=== PATIENT | female | born 1985 | race Caucasian/White ===

== ENCOUNTER 2017-01-13 09:17 | Emergency (ER) | payer OTHER, MEDICAID ==
[~2017-01-13 09:17] MED LIST: ALLEGRA180 MG PO; ANAPROX DS550 MG PO; AVIDOXY100 MG PO; BACTRIM DS 8001 TA1 PO; BENADRYL50 MG PO; CLARITIN10 MG PO; CLINDAMYCIN HC300 MG PO; DIPROSONE0.05% TP; DOXYCYCLINE MO100 MG PO; LIDEX0.05% T; MEDROL DOSEPAK4 MG PO; MOTRIN600 MG PO; MOTRIN800 MG PO; MULTIPLE VITAMI1 CAP PO; NAPROSYN500 MG PO; PHENERGAN W/DM120 ML PO; PREDNICOT20 MG PO; PRENATAL 1 MG +1 TAB PO; PROCTOFOAM 1%10 GM R; PROVENTIL0.09 MG/AC IH; ROBITUSSIN AC 110 ML PO; SEPTRA DS 800 M1 TAB PO; TRIMOX500 MG PO; TYLENOL W/CODEI1 TA2 PO; VIBRAMYCIN100 MG PO; VICODIN 5/500 505 MG PO; ZITHROMAX Z PA250 MG PO
[2017-01-13] MEDS ORDERED: CYCLOBENZAPRINE10 MG PO (11:15)
[2017-01-13] MEDS ORDERED: Motrin,Rufen800 MG PO (11:15)
== END 2017-01-13 13:05 | disposition home or self-care (01) ==
LOC: ED 09:17
DX: S16.1XXA Strain of muscle, fascia and tendon at neck level, initial encounter (principal); Z88.1 Allergy status to other antibiotic agents; Z79.899 Other long term (current) drug therapy; V43.62XA Car passenger injured in collision with other type car in traffic accident, initial encounter; Y93.89 Activity, other specified; Y92.89 Other specified places as the place of occurrence of the external cause; Y99.8 Other external cause status

== ENCOUNTER 2017-01-16 11:24 | Emergency (ER) | payer OTHER, MEDICAID ==
[~2017-01-16] VITALS: Ht 170.1 cm; Wt 90.7 kg
[~2017-01-16 11:24] MED LIST changes: +CYCLOBENZAPRINE10 MG PO; +Motrin,Rufen800 MG PO
[2017-01-16] MEDS ORDERED: NORCO 5-325 TA1 EACH PO (12:24)
[2017-01-16] MEDS ORDERED: MEDROL DOSEPAK4 MG PO (12:24)
== END 2017-01-16 13:59 | disposition home or self-care (01) ==
LOC: ED 11:24
DX: M54.12 Radiculopathy, cervical region (principal); F17.200 Nicotine dependence, unspecified, uncomplicated; Z88.1 Allergy status to other antibiotic agents; Z79.899 Other long term (current) drug therapy

== ENCOUNTER 2017-02-13 11:12 | Emergency (ER) | payer MEDICAID ==
[~2017-02-13] VITALS: Ht 167.6 cm; Wt 94.3 kg
[~2017-02-13 11:12] MED LIST changes: +NORCO 5-325 TA1 EACH PO
[2017-02-13] MEDS ORDERED: ZYRTEC10 MG PO (11:50)
[2017-02-13] MEDS ORDERED: AMOXICILLIN500 M2 PO (11:50)
== END 2017-02-13 12:11 | disposition home or self-care (01) ==
LOC: ED 11:12
DX: J01.90 Acute sinusitis, unspecified (principal); F17.200 Nicotine dependence, unspecified, uncomplicated; Z88.1 Allergy status to other antibiotic agents; Z79.899 Other long term (current) drug therapy

== ENCOUNTER 2017-07-27 01:27 | Emergency (ER) | payer MEDICAID ==
[~2017-07-27] VITALS: Ht 317.5 cm; Wt 99.8 kg
[~2017-07-27 01:27] MED LIST changes: +AMOXICILLIN500 M2 PO; +ZYRTEC10 MG PO
[2017-07-27 02:46] LABS: BILIRUBIN NEGATIVE (NEGATIVE); BLOOD NEGATIVE (NEGATIVE); CLARITY CLEAR (CLEAR); COLOR YELLOW (YELLOW); GLUCOSE NEGATIVE (NEGATIVE); KETONE NEGATIVE (NEGATIVE); LEUKO ESTERASE NEGATIVE (NEGATIVE); NITRITE NEGATIVE (NEGATIVE); UROBILINOGEN 0.2 E.U./dl (0.2-1.0)
[2017-07-27 02:55] LABS: URINE AMPHETAMINES < 1000 (1000ng/ml); URINE BARBITURATES < 200 (200ng/ml); URINE BENZODIAZEPINES < 200 (200ng/ml); URINE CANNABINOIDS (THC) < 50 (50ng/ml); URINE COCAINE < 300 (300ng/ml); URINE METHADONE < 300 (300ng/ml); URINE OPIATES < 300 (300ng/ml)
[2017-07-27 02:56] LABS: BACTERIA TRACE; RBC 0-2 rbc/hpf (0-2); WBC 0-2 wbc/hpf (0-5)
[2017-07-27 03:01] LABS: URINE PHENCYCLIDINE < 25 (25ng/ml)
== END 2017-07-27 04:19 | disposition home or self-care (01) ==
LOC: ED 01:27
PROVIDERS: Emergency Medicine
DX: T45.0X5A Adverse effect of antiallergic and antiemetic drugs, initial encounter (principal); F17.200 Nicotine dependence, unspecified, uncomplicated; Z88.1 Allergy status to other antibiotic agents; Z79.899 Other long term (current) drug therapy; Y92.89 Other specified places as the place of occurrence of the external cause

== ENCOUNTER 2017-10-06 14:35 | Emergency (ER) | payer MEDICAID ==
[~2017-10-06] VITALS: Ht 167.6 cm; Wt 95.3 kg
[2017-10-06] MEDS ORDERED: MEDROL DOSEPAK4 MG PO (14:56)
[2017-10-06] MEDS ORDERED: AMOXICILLIN500 M2 PO (14:56)
[2017-10-06] MEDS ORDERED: ZYRTEC10 MG PO (14:56)
== END 2017-10-06 15:08 | disposition home or self-care (01) ==
LOC: ED 14:35
DX: J40 Bronchitis, not specified as acute or chronic (principal); J01.00 Acute maxillary sinusitis, unspecified; Z79.899 Other long term (current) drug therapy; Z88.1 Allergy status to other antibiotic agents

== ENCOUNTER 2018-04-03 17:04 | Emergency (ER) | payer MEDICAID ==
[~2018-04-03] VITALS: Ht 167.6 cm; Wt 86.2 kg
[2018-04-03] MEDS ORDERED: Motrin,Rufen800 MG PO (18:36)
== END 2018-04-03 19:05 | disposition home or self-care (01) ==
LOC: ED 17:04
DX: M77.9 Enthesopathy, unspecified (principal); M25.571 Pain in right ankle and joints of right foot; Z88.1 Allergy status to other antibiotic agents; Z79.899 Other long term (current) drug therapy

== ENCOUNTER 2018-04-10 21:25 | Emergency (ER) | payer MEDICAID ==
[~2018-04-10] VITALS: Ht 170.1 cm; Wt 90.3 kg
[2018-04-10] MEDS ORDERED: Motrin,Rufen800 MG PO (22:25)
== END 2018-04-10 22:27 | disposition home or self-care (01) ==
LOC: ED 21:25
DX: S39.012A Strain of muscle, fascia and tendon of lower back, initial encounter (principal); Z88.1 Allergy status to other antibiotic agents; Z79.899 Other long term (current) drug therapy; W01.0XXA Fall on same level from slipping, tripping and stumbling without subsequent striking against object, initial encounter; Y93.89 Activity, other specified; Y92.89 Other specified places as the place of occurrence of the external cause; Y99.8 Other external cause status

== ENCOUNTER 2018-10-25 22:24 | Emergency (ER) | payer MEDICAID ==
[~2018-10-25] VITALS: Ht 170.1 cm; Wt 76.2 kg
[2018-10-25] MEDS ORDERED: VIBRAMYCIN100 MG PO (23:10)
== END 2018-10-25 23:28 | disposition home or self-care (01) ==
LOC: ED 22:24
DX: N89.8 Other specified noninflammatory disorders of vagina (principal); Z11.3 Encounter for screening for infections with a predominantly sexual mode of transmission; Z88.1 Allergy status to other antibiotic agents; Z79.899 Other long term (current) drug therapy

== ENCOUNTER 2022-02-10 04:16 | Emergency (ER) | payer SELFPAY | END 2022-02-10 04:55 | disposition home or self-care (01) | LOC: ED 04:16 | DX: H10.32 Unspecified acute conjunctivitis, left eye (principal); Z79.899 Other long term (current) drug therapy; Z88.1 Allergy status to other antibiotic agents ==

== ENCOUNTER 2022-12-06 19:03 | Emergency (ER) | payer MEDICAID | END 2022-12-06 22:57 | disposition home or self-care (01) | LOC: ED 19:03 | DX: J06.9 Acute upper respiratory infection, unspecified (principal); R51.9 Headache, unspecified; Z20.822 Contact with and (suspected) exposure to COVID-19; Z88.1 Allergy status to other antibiotic agents; Z98.890 Other specified postprocedural states ==

== ENCOUNTER 2023-01-29 14:02 | Emergency (ER) | payer MEDICAID ==
[~2023-01-29] VITALS: Ht 167.6 cm; Wt 95.3 kg
[2023-01-29] MEDS ORDERED: AMOXICILLIN875 MG PO (15:47)
== END 2023-01-29 16:08 | disposition home or self-care (01) ==
LOC: ED 14:02
DX: J32.9 Chronic sinusitis, unspecified (principal); Z98.51 Tubal ligation status

== ENCOUNTER 2023-10-27 21:14 | Emergency (ER) | payer MEDICAID ==
[~2023-10-27] VITALS: Ht 167.6 cm; Wt 95.3 kg
[~2023-10-27 21:14] MED LIST changes: +AMOXICILLIN875 MG PO
[2023-10-27 21:40] LABS: BASO % 0.3 % (0.0-1.0); EOS # 0.1 10*3/uL (0.0-0.4); EOS % 1.5 % (1.0-4.0); HEMATOCRIT 44.8 % (37.0-47.0); LYMPH # 3.2 10*3/uL (1.3-4.4); LYMPH % 33.6 % (27.0-41.0); MEAN CELL VOLUME 90.5 fl (81.0-99.0); MEAN CORPUSCULAR HGB 29.1 pg (27.0-31.0); MEAN CORPUSCULAR HGB CONC 32.1 g/dl (33.0-37.0); MEAN PLATELET VOLUME 10.2 fl (9.6-12.3); MONO # 0.6 10*3/uL (0.1-1.0); MONO % 6.5 % (3.0-9.0); NEUT # 5.5 10*3/uL (2.3-7.9); NEUT % 57.8 % (47.0-73.0); PLATELET COUNT AUTOMATED 325 10*3/uL (130-400); RED BLOOD COUNT 4.95 10*6/uL (4.10-5.10); RED CELL DISTRI WIDTH 12.5 % (0-14.5); WHITE BLOOD COUNT 9.5 10*3/uL (4.8-10.8)
[2023-10-27 21:42] LABS: BILIRUBIN Negative (Negative); BLOOD Negative (Negative); CLARITY Turbid (Clear); COLOR Yellow (Yellow); GLUCOSE Trace (Negative); KETONE Trace (Negative); LEUKO ESTERASE 2+ (Negative); NITRITE Negative (Negative)
[2023-10-27 21:49] LABS: BACTERIA 2+; EPITHELIAL CELLS TNTC; WBC TNTC wbc/hpf (0-5)
[2023-10-27 22:00] LABS: BUN 6 mg/dl (9-23); CHLORIDE 104 mmol/L (98-107); POTASSIUM 4.1 mmol/L (3.4-5.1)
[2023-10-27] MEDS ORDERED: Doxycycline Hyclate 100 MG CAP PO ONE (22:20)
[2023-10-27] MEDS ORDERED: VIBRAMYCIN100 MG PO (22:22)
== END 2023-10-27 22:31 | disposition home or self-care (01) ==
LOC: ED 21:14
PROVIDERS: Nurse Practitioner
DX: N39.0 Urinary tract infection, site not specified (principal); Z88.1 Allergy status to other antibiotic agents; Z98.51 Tubal ligation status

== ENCOUNTER 2024-07-03 19:57 | Emergency (ER) | payer MEDICAID ==
[~2024-07-03] VITALS: Ht 167.6 cm; Wt 95.3 kg
[2024-07-03] MEDS ORDERED: methylPREDNISolone sod succ 125 MG VIAL IM ONE (20:20)
[2024-07-03] MEDS ORDERED: PREDNISONE20 M1 PO (20:23)
== END 2024-07-03 20:34 | disposition home or self-care (01) ==
LOC: ED 19:57
DX: L23.7 Allergic contact dermatitis due to plants, except food (principal); Z79.899 Other long term (current) drug therapy; Z88.1 Allergy status to other antibiotic agents

== ENCOUNTER 2024-07-29 09:30 | Emergency (ER) | payer MEDICAID ==
[~2024-07-29] VITALS: Ht 167.6 cm; Wt 97.2 kg
[~2024-07-29 09:30] MED LIST changes: +PREDNISONE20 M1 PO
[2024-07-29] MEDS ORDERED: Tetracaine Hydrochloride 0.5% 4 ML BOT OPH ONE (09:50)
[2024-07-29] MEDS ORDERED: methylPREDNISolone sod succ 125 MG VIAL IM ONE (09:50)
[2024-07-29] MEDS ORDERED: LISSAMINE GREEN 1.5 MG STRIP OP ONE (09:50)
[2024-07-29] MEDS ORDERED: Water, Sterile 10 ML VIAL ONE (10:12)
[2024-07-29] MEDS ORDERED: ARTIFICIAL TEAR1514 OP (10:24)
[2024-07-29] MEDS ORDERED: PREDNISONE20 M1 PO (10:24)
[2024-07-29] MEDS ORDERED: CIPROFLOXACIN H10 ML OPH (10:24)
== END 2024-07-29 10:30 | disposition home or self-care (01) ==
LOC: ED 09:30
DX: L23.7 Allergic contact dermatitis due to plants, except food (principal); Z88.1 Allergy status to other antibiotic agents

== ENCOUNTER → 2025-02-10 | Outpatient (CLI) | payer MEDICAID ==
[~2025-02-10] MED LIST changes: +ARTIFICIAL TEAR1514 OP; +CIPROFLOXACIN H10 ML OPH
[2025-02-10 16:06] LABS: BASO # 0.0 10*3/uL (0.0-0.1); BASO % 0.4 % (0.0-1.0); EOS # 0.1 10*3/uL (0.0-0.4); EOS % 1.0 % (1.0-4.0); MEAN CELL VOLUME 89.9 fl (81.0-99.0); MEAN CORPUSCULAR HGB 29.0 pg (27.0-31.0); MEAN PLATELET VOLUME 10.1 fl (9.6-12.3); MONO # 0.5 10*3/uL (0.1-1.0); MONO % 6.9 % (3.0-9.0); NEUT # 4.3 10*3/uL (2.3-7.9); NEUT % 60.9 % (47.0-73.0); NUCLEATED RED BLOOD CELL 0.0 % (0.0-0.0); NUCLEATED RED BLOOD CELL 0.0 10*3/uL (0.0-0.0); PLATELET COUNT AUTOMATED 296 10*3/uL (130-400); RED CELL DISTRI WIDTH 12.6 % (0-14.5); RETICULOCYTE % 1.52 % (0.50-2.50)
[2025-02-10 16:34] LABS: BILIRUBIN Negative (Negative); BLOOD Negative (Negative); CLARITY Cloudy (Clear); COLOR Yellow (Yellow); KETONE Negative (Negative); LEUKO ESTERASE 3+ (Negative); NITRITE Negative (Negative); PH 6.5 (4.5-8.0); SPECIFIC GRAVITY 1.015 (1.001-1.030); UROBILINOGEN 0.0 E.U./dl (0.0-1.0)
[2025-02-10 16:35] LABS: BACTERIA 3+; EPITHELIAL CELLS 16-20; RBC 0-2 rbc/hpf (0-2)
[2025-02-10 16:55] LABS: BUN 6 mg/dl (9-23); GAMMA GLUTAMYL TRANSFERASE 24 U/L (0-38); LDL CHOLESTEROL 127 mg/dL (9-159); SGPT/ALT 25 U/L (5-49); T3 UPTAKE 29.9 % (22.4-36.7); THYROXINE (T4) TOTAL 7.9 ug/dl (4.5-10.9)
[2025-02-10 16:56] LABS: VITAMIN D, 25-HYDROXY 20.7 ng/mL (30-100)
[2025-02-11 15:07] LABS: ANTI-DSDNA ANTIBODIES <1 IU/mL (0-9)
== END | disposition home or self-care (01) ==
LOC: LAB 15:31
PROVIDERS: ATTEND Family Medicine
DX: R79.89 Other specified abnormal findings of blood chemistry (principal); E78.5 Hyperlipidemia, unspecified; E55.9 Vitamin D deficiency, unspecified; R53.83 Other fatigue